=== PATIENT | female | born 1955 | race Two or more races ===

== ENCOUNTER → 2024-04-27 | Outpatient (CLI) | payer OTHER, SELFPAY ==
--- NOTE | 2024-04-27 12:30 | XR_ITS ---
Examination: Breast ultrasound complete, bilateral Date and time of exam: April 27, 2024 1258 hours INDICATIONS: Right breast sonogram April 18, 2023 probably benign lipomas, 12:00 position 7 mm 3:00 position 4 mm Technique: Real-time grayscale ultrasonographic imaging bilateral breasts, including all 4 quadrants as well as nipple retroareolar and axillary regions. Findings: Sonographic images right breast Multiple benign cysts 12:00 hyperechoic nodule, lipoma 6 x 6 mm Sonographic images left breast Multiple benign cysts 12:00 nodule consistent with lipoma, hyperechoic, 10 x 13 mm IMPRESSION: Recommend 1 additional 6 month left breast sonogram follow-up to document stability of 12:00 nodule left breast
== END | disposition home or self-care (01) ==
LOC: CDIM 12:34
PROVIDERS: PCP Family Medicine; Referring Provider Family Medicine; Visit Provider Family Medicine
DX: N63.25 Unspecified lump in the left breast, overlapping quadrants (principal)
CPT/HCPCS: 76641